=== PATIENT | female | born 1955 | race Caucasian/White ===

== ENCOUNTER 2023-05-04 00:33 | Inpatient (IN) | payer MEDICARE, OTHER ==
[~2023-05-04] VITALS: Ht 165.1 cm; Wt 108.0 kg
[2023-05-04 01:30] VITALS: BP 163/71; TEMP 99.9; O2SAT 98
[2023-05-04] MEDS ORDERED: NPH,100I SQ (03:00)
[2023-05-04] MEDS ORDERED: INSU100V28 SQ (03:00)
[2023-05-04] MEDS ORDERED: ASCO500T10 PO (03:00)
[2023-05-04] MEDS ORDERED: MULT-754 PO (03:00)
[2023-05-04] MEDS ORDERED: CEPH750C9 PO (03:00)
[2023-05-04] MEDS ORDERED: CHOL100062 PO (03:00)
[2023-05-04] MEDS ORDERED: DOCU-141 PO (03:00)
[2023-05-04] MEDS ORDERED: ONDANSETRON HCL/PF 4 MG/2 ML VIAL IV PRN (05:30)
[2023-05-04] MEDS: IV LR 1000 ML 1,000 ML IV PRN (06:40)
[2023-05-04 06:49] LABS: BASOPHILS % (AUTO) 0.2 % (0.0-2.0); EOSINOPHILS # (AUTO) 0.2 K/uL (0.0-0.7); EOSINOPHILS % (AUTO) 3.1 % (0.0-6.0); HEMATOCRIT 33 % (33-45); HEMOGLOBIN 10.9 g/dL (11.5-14.8); LYMPHOCYTES % (AUTO) 12.9 % (20.0-44.0); MEAN CORPUSCULAR HEMOGLOBIN 30 PG (26.0-33.0); MEAN CORPUSCULAR HGB CONC 33 g/dl (31.0-36.0); MEAN CORPUSCULAR VOLUME 90 fL (82-100); MONOCYTES # (AUTO) 0.6 K/uL (0.1-1.30); MONOCYTES % (AUTO) 8.2 % (2.0-12.0); NEUTROPHILS # (AUTO) 5.9 K/uL (1.8-8.9); NEUTROPHILS % (AUTO) 75.6 % (43.0-81.0); PLATELET COUNT (AUTO) 290 K/uL (150-450); RED BLOOD CELL COUNT(AUTO) 3.67 MIL/uL (4.0-5.2); RED CELL DISTRIBUTION WIDTH 13.7 % (11.5-15.0); WHITE BLOOD COUNT (AUTO) 7.8 K/uL (4.3-11.0)
[2023-05-04 07:00] VITALS: BP 149/55; TEMP 98.4; O2SAT 95
[2023-05-04 07:14] LABS: ALBUMIN 1.6 g/dL (3.4-5.0); BILIRUBIN,TOTAL 0.2 mg/dL (0.2-1.0); CALCIUM, SERUM 8.1 mg/dL (8.5-10.1); CREATININE 1.2 mg/dL (0.6-1.3); MAGNESIUM 1.9 mg/dL (1.8-2.4); PHOSPHORUS 2.9 mg/dL (2.5-4.9); POTASSIUM 3.5 mmol/L (3.5-5.1); TOTAL PROTEIN, SERUM 5.1 g/dL (6.4-8.2)
[2023-05-04] MEDS ORDERED: BLOO-668 IN (07:47)
[2023-05-04] MEDS ORDERED: VANCOMYCIN 1.5 GM in IV D5W 500ml IV ONE (08:00)
[2023-05-04] MEDS: PANTOPRAZOLE 40 MG TABLET.DR PO SCH (08:24)
[2023-05-04] MEDS ORDERED: CEFTRIAXONE 1 G in IV D5W 50 ML IV SCH (09:00)
[2023-05-04 16:00] VITALS: BP 151/72; TEMP 98; O2SAT 96
[2023-05-04 16:12] LABS: APPEARANCE,URINE SLIGHTLY CLOUDY (CLEAR); COLOR,URINE YELLOW (YELLOW)
[2023-05-04 16:13] LABS: BILIRUBIN,URINE NEGATIVE (NEGATIVE); BLOOD, URINE 2+ Ery/uL (NEGATIVE); KETONES,URINE NEGATIVE (NEGATIVE); UGLUCOSE 250 MG/DL mg/dL (NEGATIVE)
[2023-05-04 16:14] LABS: LEUKOCYTE ESTERASE ,URINE 2+ (NEGATIVE); NITRITE, URINE NEGATIVE (NEGATIVE); PROTEIN,URINE 3+ mg/dl (NEGATIVE); UROBILINOGEN,URINE 0.2 EU/dL (0.2)
[2023-05-04 16:18] LABS: ADD URINE CULTURE YES; BACTERIA,URINE 3+ /HPF (None Seen); RBC,URINE 21-50 /HPF (0-2); WBC,URINE 21-50 /HPF (0-3)
[2023-05-04 20:00] VITALS: BP 152/81; TEMP 98; O2SAT 96
[2023-05-04] MEDS: VANCOMYCIN 1.25 GM in IV D5W 250 ML IV SCH (20:52)
[2023-05-05] MEDS: IV LR 1000 ML 1,000 ML IV PRN (00:14)
[2023-05-05 07:00] VITALS: BP 160/84; TEMP 97.8; O2SAT 98
[2023-05-05] MEDS: PANTOPRAZOLE 40 MG TABLET.DR PO SCH (08:42)
[2023-05-05] MEDS: VANCOMYCIN 1.25 GM in IV D5W 250 ML IV SCH (08:42)
[2023-05-05] MEDS: THERAHONEY GEL 1.5 OZ TUBE TP SCH (08:44)
[2023-05-05 12:18] LABS: CREATININE 1.2 mg/dL (0.6-1.3); POTASSIUM 4.1 mmol/L (3.5-5.1)
[2023-05-05 16:00] VITALS: BP 150/90; TEMP 97.6; O2SAT 99
[2023-05-05] MEDS ORDERED: DEXTROSE 50%-WATER 50 ML DISP.SYRIN IV PRN (16:30)
[2023-05-05] MEDS ORDERED: DOCUSATE SODIUM 100 MG CAPSULE PO PRN (16:30)
[2023-05-05] MEDS ORDERED: INSULIN REGULAR, HUMAN 100 UNIT/ML 3 ML VIAL SQ SCH (16:30)
[2023-05-05] MEDS ORDERED: BLOOD SUGAR DIAGNOSTIC 1 EACH STRIP IN SCH (17:00)
[2023-05-05] MEDS: NPH HUMAN INSULIN ISOPHANE SQ SCH (17:47)
[2023-05-05] MEDS: BLOOD SUGAR DIAGNOSTIC 1 EACH STRIP VI SCH ×2 (17:49→22:47)
[2023-05-05] MEDS: INSULIN REGULAR, HUMAN 100 UNIT/ML 3 ML VIAL SQ PRN ×2 (17:49→23:30)
[2023-05-05 20:00] VITALS: BP 154/67; TEMP 98.2; O2SAT 97
[2023-05-06] MEDS: IV LR 1000 ML 1,000 ML IV PRN ×2 (04:36→18:23)
[2023-05-06] MEDS: BLOOD SUGAR DIAGNOSTIC 1 EACH STRIP VI SCH ×4 (07:06→22:05)
[2023-05-06 07:43] LABS: CALCIUM, SERUM 7.9 mg/dL (8.5-10.1); CREATININE 1.2 mg/dL (0.6-1.3); POTASSIUM 3.9 mmol/L (3.5-5.1)
[2023-05-06 08:00] VITALS: BP 148/62; TEMP 97.9; O2SAT 100
[2023-05-06] MEDS ORDERED: VANCOMYCIN 1.5 GM in IV D5W 500 ML IV SCH (08:00)
[2023-05-06] MEDS: CLOTRIMAZOLE/BETAMETASONE DIPROPIONATE 15 GM TUBE TP SCH ×2 (09:07→16:54)
[2023-05-06] MEDS: MUPIROCIN OINT 2% 22 GM TUBE NS SCH ×2 (09:07→21:43)
[2023-05-06] MEDS: NPH HUMAN INSULIN ISOPHANE SQ SCH ×2 (09:08→16:57)
[2023-05-06] MEDS: ASCORBIC ACID 500 MG TABLET PO SCH (09:08)
[2023-05-06] MEDS: PANTOPRAZOLE 40 MG TABLET.DR PO SCH (09:08)
[2023-05-06] MEDS: THERAHONEY GEL 1.5 OZ TUBE TP SCH (09:09)
[2023-05-06] MEDS: INSULIN REGULAR, HUMAN 100 UNIT/ML 3 ML VIAL SQ PRN ×2 (11:30→16:57)
[2023-05-06 16:00] VITALS: BP 156/89; TEMP 98.8; O2SAT 96
[2023-05-06 19:00] VITALS: BP 159/58; TEMP 98.1; O2SAT 98
[2023-05-06] MEDS: *INSULIN REGULAR(HUMULIN R)HUM 100 UNIT/ML VIAL SQ PRN (22:30)
[2023-05-07] VITALS (7 sets, daily range): BP systolic 130–182; BP diastolic 66–91; TEMP 97.9–99; O2SAT 96–100
[2023-05-07] MEDS: IV LR 1000 ML 1,000 ML IV PRN ×2 (07:10→23:55)
[2023-05-07] MEDS: INSULIN REGULAR, HUMAN 100 UNIT/ML 3 ML VIAL SQ PRN ×3 (07:17→16:46)
[2023-05-07] MEDS: BLOOD SUGAR DIAGNOSTIC 1 EACH STRIP VI SCH ×4 (07:17→21:26)
[2023-05-07] MEDS ORDERED: VANCOMYCIN 1.25 GM in IV D5W 250 ML IV SCH (08:00)
[2023-05-07] MEDS: PANTOPRAZOLE 40 MG TABLET.DR PO SCH (08:51)
[2023-05-07] MEDS: ASCORBIC ACID 500 MG TABLET PO SCH (08:51)
[2023-05-07] MEDS: MUPIROCIN OINT 2% 22 GM TUBE NS SCH ×2 (08:55→21:27)
[2023-05-07] MEDS: CLOTRIMAZOLE/BETAMETASONE DIPROPIONATE 15 GM TUBE TP SCH ×2 (08:56→16:54)
[2023-05-07] MEDS: THERAHONEY GEL 1.5 OZ TUBE TP SCH (08:56)
[2023-05-07] MEDS: NPH HUMAN INSULIN ISOPHANE SQ SCH ×2 (09:01→16:44)
[2023-05-07 09:19] LABS: CALCIUM, SERUM 7.9 mg/dL (8.5-10.1); CREATININE 1.1 mg/dL (0.6-1.3); POTASSIUM 3.8 mmol/L (3.5-5.1)
[2023-05-07] MEDS: *INSULIN REGULAR(HUMULIN R)HUM 100 UNIT/ML VIAL SQ PRN (21:38)
[2023-05-08] MEDS: BLOOD SUGAR DIAGNOSTIC 1 EACH STRIP VI SCH ×2 (06:30→12:03)
[2023-05-08] MEDS: INSULIN REGULAR, HUMAN 100 UNIT/ML 3 ML VIAL SQ PRN ×2 (06:31→12:03)
[2023-05-08 07:21] LABS: CREATININE 1.1 mg/dL (0.6-1.3); POTASSIUM 4.1 mmol/L (3.5-5.1)
[2023-05-08 07:30] VITALS: BP 175/93; TEMP 98.4; O2SAT 95
[2023-05-08] MEDS ORDERED: VANCOMYCIN 1.25 GM in IV D5W 250 ML IV SCH (08:00)
[2023-05-08] MEDS: MUPIROCIN OINT 2% 22 GM TUBE NS SCH (09:00)
[2023-05-08] MEDS: THERAHONEY GEL 1.5 OZ TUBE TP SCH (09:00)
[2023-05-08] MEDS: CLOTRIMAZOLE/BETAMETASONE DIPROPIONATE 15 GM TUBE TP SCH ×2 (09:00→17:13)
[2023-05-08] MEDS: NPH HUMAN INSULIN ISOPHANE SQ SCH (10:14)
[2023-05-08] MEDS ORDERED: SULF1TAB48 PO (10:22)
[2023-05-08] MEDS: ASCORBIC ACID 500 MG TABLET PO SCH (10:25)
[2023-05-08] MEDS: PANTOPRAZOLE 40 MG TABLET.DR PO SCH (10:25)
[2023-05-08 16:00] VITALS: BP 170/70; TEMP 99.3; O2SAT 95
[2023-05-08] MEDS ORDERED: VANCOMYCIN 1 GM in IV D5W 250ml IV SCH (19:00)
== END 2023-05-08 18:00 | DRG 623 ==
LOC: MED 01:25
PROVIDERS: ADMIT Internal Medicine; ATTEND Internal Medicine
PROC: 0JBR0ZZ Excision of Left Foot Subcutaneous Tissue and Fascia, Open Approach (ICD-10-PCS; principal; 2023-05-04)
DX: E11.621 Type 2 diabetes mellitus with foot ulcer (principal); L97.429 Non-pressure chronic ulcer of left heel and midfoot with unspecified severity; N39.0 Urinary tract infection, site not specified; E11.42 Type 2 diabetes mellitus with diabetic polyneuropathy; E78.5 Hyperlipidemia, unspecified; I10 Essential (primary) hypertension; L30.4 Erythema intertrigo; M24.572 Contracture, left ankle; Z74.01 Bed confinement status; Z89.421 Acquired absence of other right toe(s); Z79.4 Long term (current) use of insulin
CPT/HCPCS: 36415; 73630-TC; 80048-TC; 80053-TC; 80202-TC; 81001; 82962-TC; 83735-TC; 84100-TC; 85025-TC; 87081-TC; 87086-TC; A4223; G0378; J1815; J3370; J7040; J7060; J7120